=== PATIENT | female | born 2000 | race Caucasian/White ===

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

== ENCOUNTER → 2018-07-02 | Outpatient (CLI) | payer OTHER ==
[2018-07-02 14:13] LABS: BARBITURATE, URINE NEG. ng/ml (NEG <=200); BENZODIAZEPINE, URINE NEG. ng/mL (NEG <=200); CANNABINOID, URINE NEG. ng/mL (NEG <=50); COCAINE, URINE NEG. ng/mL (NEG <=300); OPIATE, URINE NEG. ng/mL (NEG <=2000); PHENCYCLIDINE SCREEN,URINE NEG. ng/mL (NEG <=25)
[2018-07-07 08:46] LABS: HEPATITIS B SURFACE ANTIBODY NON REACTIVE (NONREACTIVE)
[2018-07-07 08:47] LABS: VARICELLA IGG ANTIBODY 464 Index (135 - 165)
[2018-07-07 08:48] LABS: HEPATITIS B SURFACE ANTIGEN NEGATIVE (NEGATIVE)
== END | disposition home or self-care (01) ==
LOC: MLB 12:30
PROVIDERS: ATTEND Family Medicine
DX: Z01.84 Encounter for antibody response examination (principal); B19.10 Unspecified viral hepatitis B without hepatic coma; B05.0 Measles complicated by encephalitis; B06.9 Rubella without complication; B01.89 Other varicella complications
CPT/HCPCS: 36415; 80305; 86592; 86704; 86706; 86708; 86762; 86765; 86787; 87340

== ENCOUNTER 2018-09-04 11:51 | Outpatient (CLI) | payer OTHER | END 2018-09-04 20:38 | disposition home or self-care (01) | LOC: MLB 11:51 | PROVIDERS: ATTEND Family Medicine | DX: Z00.01 Encounter for general adult medical examination with abnormal findings (principal) | CPT/HCPCS: 36415 ==

== ENCOUNTER 2021-04-27 11:17 | Outpatient (CLI) | payer OTHER | END 2021-04-27 20:22 | disposition home or self-care (01) | LOC: MUS 11:17 | PROVIDERS: ATTEND Preventive Medicine Preventive Medicine/Occupational Environmental Medicine | DX: R22.41 Localized swelling, mass and lump, right lower limb (principal) | CPT/HCPCS: 76881 ==